=== PATIENT | male | born 1965 | race Hispanic/Latino ===

== ENCOUNTER 2020-10-20 02:19 | Emergency (ER) | payer MEDICAID ==
[2020-10-20 03:48] LABS: Basophils # (Auto) 0.1 K/mm3 (0.0-0.1); Basophils % (Auto) 0.8 % (0.0-1.8); Eosinophils # (Auto) 0.1 K/mm3 (0.0-0.4); Eosinophils % (Auto) 0.7 % (0.0-4.3); Hematocrit 36.9 % (35.5-45.6); Hemoglobin 12.6 gm/dl (11.8-15.2); Lymphocytes # (Auto) 1.5 K/mm3 (1.2-5.4); Lymphocytes % (Auto) 12.1 % (13.4-35.0); Mean Corpuscular HGB Conc 34 % (32-34); Mean Corpuscular Volume 94 fl (84-94); Monocytes # (Auto) 0.8 K/mm3 (0.0-0.8); Monocytes % (Auto) 6.4 % (0.0-7.3); Platelet Count 242 K/mm3 (140-440); Red Blood Count 3.94 M/mm3 (3.65-5.03); Red Cell Distribution Width 13.9 % (13.2-15.2)
[2020-10-20 04:09] LABS: BUN/Creatinine Ratio 13; Blood Urea Nitrogen 10 mg/dL (9-20); Hemolysis Index 9
--- NOTE | 2020-10-20 06:11 | Emergency Department Report ---
ED Psych HPI - General Chief Complaint: Psych Stated Complaint: OUT OF MEDS/MED REFILL Time Seen by Provider: 10/20/20 04:28 Source: patient, EMS Mode of arrival: Ambulatory - History of Present Illness Initial Comments: This is a 55-year-old homeless man with a known history of psychiatric disorder said to be schizophrenia. He admits to homelessness and tells me he is out of h is medication. Cannot identify his medication. He knew his name and the month. He thought he was in [facility]. He has no active complaints. He says he is hungry and thirsty. He has not been eating very well he states. He denies a history of HIV or Covid infection. He denies a history of any ongoing medical problems. The chart indicates he has a history of hypertension. His first bloo d pressure was somewhat elevated. He did not indicate to me that he was taking medicine for his blood pressure. At the time of my encounter the patient was resting comfortably. He had no active complaints. He was awoken from sleep. He denies suicidal or violent ideation. He states that his homelessness is "off and on". MD Complaint: other -: unknown Associated Psychiatric Symptoms: none History of same: Yes Quality: other Improves With: none Worsens With: none Context: not taking psychiatric Associated Symptoms: denies other symptoms Treatments Prior to Arrival: none - Related Data Allergies Allergy/AdvReac Type Severity Reaction Status Date / Time No Known Allergies Allergy Unverified 10/20/20 02:54 ED Review of Systems ROS: Stated complaint: OUT OF MEDS/MED REFILL Other details as noted in HPI Comment: All other systems reviewed and negative ED Past Medical Hx - Past Medical History Previous Medical History?: Yes Hx Hypertension: Yes Hx Psychiatric Treatment: Yes (schizophrenia) Additional medical history: ETOH/Meth/Cocaine use - Surgical History Past Surgical History?: Yes Additional Surgical History: Hernia. RT elbow. Lt eyes ED Physical Exam - General Limitations: Other (Psychiatric disorder) General appearance: alert, in no apparent distress - Head Head exam: Present: atraumatic, normocephalic - Eye Eye exam: Present: normal appearance. Absent: scleral icterus - ENT ENT exam: Present: mucous membranes moist - Neck Neck exam: Present: normal inspection. Absent: tenderness - Respiratory Respiratory exam: Present: normal lung sounds bilaterally. Absent: respiratory distress - Cardiovascular Cardiovascular Exam: Present: regular rate, normal rhythm. Absent: systolic murmur, diastolic murmur, rubs, gallop - GI/Abdominal GI/Abdominal exam: Present: soft, normal bowel sounds. Absent: distended, tenderness, guarding, rebound - Rectal Rectal exam: Present: deferred - Extremities Exam Extremities exam: Present: normal inspection - Back Exam Back exam: Present: normal inspection - Neurological Exam Neurological exam: Present: alert, oriented X3, CN II-XII intact. Absent: motor sensory deficit - Psychiatric Psychiatric exam: Present: normal affect, normal mood, other (I found the patient to be coherent although his speech is somewhat tangential.) - Skin Skin exam: Present: warm, dry, intact, normal color. Absent: rash ED Course Vital Signs 10/20/20 10/20/20 10/20/20 02:58 03:57 08:01 Temperature 98.2 F 98.7 F Pulse Rate 99 H 99 H Respiratory 18 18 16 Rate Blood Pressure 141/97 119/67 [Right] O2 Sat by Pulse 100 98 Oximetry - Reevaluation(s) Reevaluation #1: I believe the patient's hyponatremia cannot be treated with oral rehydration and food. Will attempt that before proceeding with an IV. 10/20/20 07:36 10/20/20 09:28 Nurse reports the patient has ate and drank well. He is able to walk. He is coherent. His bit tremulous. Will be given a dose of Ativan. He will be referred to local resources. Reevaluation #2: Nurse reports some tremulousness. It is not unlikely that the patient has chronic liver disease, hyponatremia and possibly early alcohol withdrawal. I do not think he meets criteria for medical admission. I do not think he needs criteria for psychiatric confinement. Therefore he will be referred to [facility] medical clinic as well as [facility]. 10/20/20 09:27 ED Medical Decision Making - Lab Data Result diagrams: 10/20/20 03:32 10/20/20 03:32 Laboratory Results - last 24 hr 10/20/20 10/20/20 10/20/20 03:32 03:32 03:32 WBC RBC Hgb Hct MCV MCH MCHC RDW Plt Count Lymph % (Auto) Eddy % (Auto) Eos % (Auto) Baso % (Auto) Lymph # (Auto) Eddy # (Auto) Eos # (Auto) Baso # (Auto) Seg Neutrophils % Seg Neutrophils # Sodium 130 L Potassium 4.0 Chloride 95.3 L Carbon Dioxide 21 L Anion Gap 18 BUN 10 Creatinine 0.8 Estimated GFR > 60 BUN/Creatinine Ratio 13 Glucose 104 H Calcium 9.0 Salicylates < 0.3 L Acetaminophen 5.0 L Plasma/Serum Alcohol 10/20/20 10/20/20 03:32 03:32 WBC 12.2 H RBC 3.94 Hgb 12.6 Hct 36.9 MCV 94 MCH 32 MCHC 34 RDW 13.9 Plt Count 242 Lymph % (Auto) 12.1 L Eddy % (Auto) 6.4 Eos % (Auto) 0.7 Baso % (Auto) 0.8 Lymph # (Auto) 1.5 Eddy # (Auto) 0.8 Eos # (Auto) 0.1 Baso # (Auto) 0.1 Seg Neutrophils % 80.0 H Seg Neutrophils # 9.8 H Sodium Potassium Chloride Carbon Dioxide Anion Gap BUN Creatinine Estimated GFR BUN/Creatinine Ratio Glucose Calcium Salicylates Acetaminophen Plasma/Serum Alcohol < 0.01 Critical care attestation.: If time is entered above; I have spent that time in minutes in the direct care of this critically ill patient, excluding procedure time. ED Disposition Clinical Impression: Psychiatric disorder, Hyponatremia Disposition: TO HOME OR SELFCARE Is pt being admited?: No Does the pt Need Aspirin: No Condition: Stable Instructions: Schizophrenia Additional Instructions: Adequate fluids. See referrals for local resources. Return to the emergency department any acute change or problem as needed. Referrals: PRIMARY CARE [Primary Care Provider] - 3-5 Days [facility] [Outside] - 3-5 Days [facility] [Provider Group] - 3-5 Days Time of Disposition: 09:30
[2020-10-20 08:01] VITALS: BP 119/67
[2020-10-20] MEDS ORDERED: LORazepam 1 MG TAB PO ONE (09:26)
== END 2020-10-20 11:00 | disposition home or self-care (01) ==
LOC: ED 02:19
DX: E87.1 Hypo-osmolality and hyponatremia (principal); F20.9 Schizophrenia, unspecified; I10 Essential (primary) hypertension; Z98.890 Other specified postprocedural states
CPT/HCPCS: 36415; 80048; 80320; 85025; G0480